=== PATIENT | female | born 1950 | race Caucasian/White ===

== ENCOUNTER 2017-08-30 15:35 | Outpatient (CLI) | payer MEDICARE, OTHER | END 2017-08-30 15:36 | disposition home or self-care (01) | LOC: BICRAD 15:35 | PROVIDERS: ATTEND Internal Medicine Rheumatology | DX: M17.11 Unilateral primary osteoarthritis, right knee (principal); M19.011 Primary osteoarthritis, right shoulder ==

== ENCOUNTER 2021-11-24 15:52 | Outpatient (CLI) | payer MEDICARE, OTHER | END 2021-11-24 15:53 | disposition home or self-care (01) | LOC: CTENTCT 15:52 | PROVIDERS: ATTEND Otolaryngology Plastic Surgery within the Head & Neck | DX: J32.9 Chronic sinusitis, unspecified (principal) | CPT/HCPCS: 70486 ==